=== PATIENT | male | born 1985 | race Caucasian/White ===

== ENCOUNTER 2016-07-13 09:44 | Emergency (ER) | payer MEDICAID ==
[2016-07-13] MEDS ORDERED: DEXAMETHASONE 10 MG/ML VIAL PO STA (10:11)
[2016-07-13] MEDS ORDERED: ALBUTEROL NEB 2.5 MG/3 ML INH STA (10:11)
[2016-07-13] MEDS ORDERED: CHERRY SYRUP 10 ML UDC PO ONE (10:13)
[2016-07-13] MEDS ORDERED: DEXAMETHASONE 10 MG/ML VIAL ONE (10:13)
[2016-07-13] MEDS ORDERED: ALBUTEROL NEB 2.5 MG/3 ML INH ONE (10:19)
== END 2016-07-13 11:33 | disposition home or self-care (01) ==
DX: J45.901 Unspecified asthma with (acute) exacerbation (principal)
CPT/HCPCS: 71020; 94640; 94664; 99283; A9270; J7613

== ENCOUNTER 2016-07-19 21:06 | Emergency (ER) | payer MEDICAID ==
[2016-07-19] MEDS ORDERED: AZITHROMYCIN 250 MG TABLET PO STA (21:14)
[2016-07-19] MEDS ORDERED: BENZONATATE 100 MG CAPSULE PO STA (21:14)
[2016-07-19] MEDS ORDERED: AZITHROMYCIN 250 MG TABLET PO ONE (21:47)
[2016-07-19] MEDS ORDERED: BENZONATATE 100 MG CAPSULE PO ONE (21:47)
== END 2016-07-19 21:54 | disposition home or self-care (01) ==
DX: J45.21 Mild intermittent asthma with (acute) exacerbation (principal)
CPT/HCPCS: 99282; 99283; A9270

== ENCOUNTER 2016-08-02 16:17 | Emergency (ER) | payer MEDICAID ==
[2016-08-02] MEDS ORDERED: DEXAMETHASONE 10 MG/ML VIAL PO STA (17:01)
[2016-08-02] MEDS ORDERED: CHERRY SYRUP 10 ML UDC PO ONE (17:10)
[2016-08-02] MEDS ORDERED: DEXAMETHASONE 10 MG/ML VIAL ONE (17:10)
== END 2016-08-02 17:56 | disposition home or self-care (01) ==
DX: J20.9 Acute bronchitis, unspecified (principal); J45.909 Unspecified asthma, uncomplicated; H66.001 Acute suppurative otitis media without spontaneous rupture of ear drum, right ear; H74.02 Tympanosclerosis, left ear; R03.0 Elevated blood-pressure reading, without diagnosis of hypertension
CPT/HCPCS: 71020; 99283; 99284; A9270

== ENCOUNTER 2017-05-14 09:45 | Emergency (ER) | payer MEDICAID ==
[2017-05-14 10:04] VITALS: BP 126/60
[2017-05-14] MEDS ORDERED: DEXAMETHASONE 10 MG/ML VIAL PO STA (10:39)
--- NOTE | 2017-05-14 10:42 | ED Physician Documentation ---
PD HPI HEENT - Stated complaint Stated Complaint: LEFT SIDE NECK SWOLLEN - Chief complaint Chief Complaint: Heent - History obtained from History obtained from: Patient - History of Present Illness Timing - onset: How many days ago (7) Timing - duration: Weeks (1) Timing - details: Gradual onset, Still present Location: Left ear, Throat Improves: Medication Worsens: Swalllowing Associated symptoms: Fever, Congestion, Rhinorrhea, Swollen nodes, Cough Similar symptoms before: Diagnosis (bronchitis) Recently seen: Not recently seen - Additional information Additional information: 31-year-old male with a history of asthma has developed a cough and congestion for the past week. He has had a little bit of a low-grade fever muscle aches and nasal congestion. 3 days ago he began to have some swelling in the left side of his neck this is much larger today is a firm mass in the left submandibular area that is mildly tender. He is able to swallow and he is having some problem with his asthma but not significant. Review of Systems Constitutional: reports: Fever Eyes: denies: Decreased vision Ears: reports: Ear pain Nose: reports: Rhinorrhea / runny nose, Congestion Throat: denies: Dental pain / toothache, Oral lesions / sores, Sore throat Cardiac: denies: Chest pain / pressure, Palpitations Respiratory: reports: Dyspnea, Cough, Wheezing GI: denies: Abdominal Pain, Nausea, Vomiting : denies: Dysuria, Frequency Musculoskeletal: reports: Neck pain. denies: Back pain, Extremity pain Neurologic: denies: Generalized weakness, Focal weakness PD PAST MEDICAL HISTORY - Past Medical History Respiratory: Asthma Psych: Depression - Past Surgical History Past Surgical History: No - Present Medications Home Medications: Ambulatory Orders Medication Instructions Recorded Confirmed Albuterol Sulfate [Proair Hfa 2 puffs INH Q4H PRN #1 inhaler 07/13/16 07/19/16 Inhaler] Albuterol Sulf [Ventolin Hfa 1 - 2 puffs INH Q4HR PRN #1 inhaler 08/02/16 Inhaler] Amox/Clav 875/125 [Augmentin] 1 each PO Q12H #20 tablet 08/02/16 Benzonatate [Tessalon] 100 - 200 mg PO TID PRN #20 capsule 08/02/16 predniSONE [Deltasone] 10 mg PO DAILY #26 tablet 08/02/16 Albuterol Sulf [Ventolin Hfa 1 - 2 puffs INH Q4HR PRN #1 inhaler 05/14/17 Inhaler] Amox/Clav 875/125 [Augmentin] 1 each PO Q12H #20 tablet 05/14/17 - Allergies Allergies/Adverse Reactions: Allergies Allergy/AdvReac Type Severity Reaction Status Date / Time No Known Drug Allergies Allergy Verified 07/13/16 09:55 - Social History Does the pt smoke?: No Smoking Status: Never smoker Does the pt drink ETOH?: Yes Does the pt have substance abuse?: No - Immunizations Immunizations are current?: Yes - POLST Patient has POLST: No PD ED PE NORMAL - Vitals Vital signs reviewed: Yes - General General: Alert and oriented X 3, No acute distress, Well developed/nourished - HEENT HEENT: Atraumatic, PERRL, EOMI (Normal), Other (Left TM is with minimal erythema in the attic the right is Dull and with distorted landmarks. The pharynx is with 1+ tonsils without exudate.) - Neck Neck: Supple, no meningeal sign, No bony TTP, Other (There is a tender submandibular lymph node enlarged on the left side that is approximately 3 cm in size. The area is tender there is no fluctuance.) - Cardiac Cardiac: RRR - Respiratory Respiratory: No respiratory distress, Clear bilaterally - Abdomen Abdomen: Soft, Non tender - Derm Derm: Normal color, Warm and dry, No rash - Extremities Extremities: No deformity, No edema - Neuro Neuro: No motor deficit, No sensory deficit Eye Opening: Spontaneous Motor: Obeys Commands Verbal: Oriented GCS Score: 15 - Psych Psych: Normal mood, Normal affect Results - Vitals Vitals: Vital Signs - 24 hr 05/14/17 10:01 Temperature 37.1 C Heart Rate 96 Respiratory 17 Rate Blood Pressure 126/60 O2 Saturation 99 Oxygen O2 Source Room air PD MEDICAL DECISION MAKING - ED course Complexity details: considered differential, d/w patient ED course: 31-year-old maleHistory of asthma has a enlarged lymph node in the left submandibular area is given 10 mg of dexamethasone orally we will put him on some Augmentin. Departure - Departure Disposition: 01 Home, Self Care Clinical Impression: Lymphadenitis, acute Condition: Stable Instructions: ED Cervical Adenitis Abx Tx Follow-Up: Leslye Chisholm ARNP [Primary Care Provider] - Prescriptions: Albuterol Sulf [Ventolin Hfa Inhaler] 1 - 2 puffs INH Q4HR PRN #1 inhaler PRN Reason: Shortness Of Air/Wheezing Amox/Clav 875/125 [Augmentin] 1 each PO Q12H #20 tablet
== END 2017-05-14 11:05 | disposition home or self-care (01) ==
LOC: ED 09:45
DX: I88.9 Nonspecific lymphadenitis, unspecified (principal); J45.909 Unspecified asthma, uncomplicated
CPT/HCPCS: 99283

== ENCOUNTER 2019-02-01 02:43 | Day surgery (SDC) | payer SELFPAY ==
--- NOTE | 2019-02-01 02:56 | ED Physician Documentation ---
PD HPI ABD PAIN - Stated complaint Stated Complaint: ABD PX - History obtained from History obtained from: Patient - History of Present Illness Timing - onset: Yesterday Timing - duration: Days (2) Timing - details: Gradual onset Quality: Sharp Location: Epigastric, Periumbilical, RLQ Associated symptoms: Nausea, Constipation. No: Fever, Vomiting, Diarrhea, Dysuria, Hematuria, Dizzy, Near syncope / syncope, Testicular pain Similar symptoms before: Has not had sx before Recently seen: Not recently seen - Additional information Additional information: This is a 33-year-old man who presents with complaints that yesterday morning he woke up and was coughing and had some nausea and some epigastric abdominal pain just did not feel that well. Throughout the day yesterday the pain kind of migrated down to his bellybutton and he thought it was related to the fact that he had eaten some nachos. Pain today, waxed and waned through the day and tonight after 2 drinks it was gone. It started to come back again but he was able to get to sleep but he woke up at 2 AM with extreme nausea thought he was going to vomit but by the time he got into the bathroom he never actually vomited. Says he feels the urge to defecate and pass gas but nothing really comes out. He has not had any diarrhea. He did admit admit to eating a lot of jerking last through the day yesterday. He is rating the pain now to 5 out of 10 and he noted before coming in that if he pushed in his right lower abdomen he had a lot of sharp pain there and became concerned that this could be his appendix. Denies any fever and he has not taken any medications for the pain. No abdominal surgeries. Yesterday he experienced some discomfort in his testicles while he was at work but that is now resolved. Denies any dysuria or dizziness. The patient admits to 2-3 alcoholic beverages 3-4 nights a week. He does vape. He works as an electrician constructor supervisor. Review of Systems Constitutional: denies: Fever Throat: denies: Sore throat Respiratory: reports: Cough GI: reports: Abdominal Pain, Nausea, Constipation. denies: Vomiting, Diarrhea : denies: Dysuria Skin: denies: Rash Musculoskeletal: denies: Back pain Neurologic: denies: Near syncope PD PAST MEDICAL HISTORY - Past Medical History Respiratory: Asthma Psych: Depression - Past Surgical History Past Surgical History: No - Present Medications Home Medications: Ambulatory Orders Medication Instructions Recorded Confirmed Albuterol Sulfate [Proair Hfa 2 puffs INH Q4H PRN #1 inhaler 07/13/16 07/19/16 Inhaler] Albuterol Sulf [Ventolin Hfa 1 - 2 puffs INH Q4HR PRN #1 inhaler 08/02/16 Inhaler] Amox/Clav 875/125 [Augmentin] 1 each PO Q12H #20 tablet 08/02/16 Benzonatate [Tessalon] 100 - 200 mg PO TID PRN #20 capsule 08/02/16 predniSONE [Deltasone] 10 mg PO DAILY #26 tablet 08/02/16 Albuterol Sulf [Ventolin Hfa 1 - 2 puffs INH Q4HR PRN #1 inhaler 05/14/17 Inhaler] Amox/Clav 875/125 [Augmentin] 1 each PO Q12H #20 tablet 05/14/17 - Allergies Allergies/Adverse Reactions: Allergies Allergy/AdvReac Type Severity Reaction Status Date / Time No Known Drug Allergies Allergy Verified 07/13/16 09:55 - Social History Does the pt smoke?: No Smoking Status: Never smoker Does the pt drink ETOH?: Yes Does the pt have substance abuse?: No - Immunizations Immunizations are current?: Yes - POLST Patient has POLST: No PD ED PE NORMAL - Vitals Vital signs reviewed: Yes - General General: Alert and oriented X 3, No acute distress, Well developed/nourished - HEENT HEENT: Atraumatic, PERRL, EOMI, Other (Dry mucous membranes) - Neck Neck: Supple, no meningeal sign - Cardiac Cardiac: RRR, No murmur, Strong equal pulses - Respiratory Respiratory: No respiratory distress, Clear bilaterally - Abdomen Abdomen: Normal bowel sounds, Soft, Other (Tenderness in the right lower quadrant without guarding.) - Back Back: No CVA TTP - Derm Derm: Normal color, Warm and dry, No rash - Neuro Neuro: Alert and oriented X 3, 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, No motor deficit, No sensory deficit, Normal speech - Psych Psych: Normal mood, Normal affect Results - Vitals Vitals: Vital Signs - 24 hr 02/01/19 02/01/19 02:46 05:03 Temperature 37.1 C 37.2 C Heart Rate 104 H 110 H Respiratory 18 12 Rate Blood Pressure 123/77 128/63 O2 Saturation 99 100 Oxygen O2 Source Room air - Labs Labs: Laboratory Tests 02/01/19 02/01/19 02/01/19 03:20 03:20 03:20 WBC 10.5 RBC 4.75 Hgb 14.5 Hct 43.6 MCV 91.8 MCH 30.5 MCHC 33.3 RDW 12.8 Plt Count 175 MPV 10.2 Neut # (Auto) 7.8 H Lymph # (Auto) 1.6 [place] # (Auto) 0.9 Eos # (Auto) 0.1 Baso # (Auto) 0.1 Absolute Nucleated RBC 0.00 Nucleated RBC % 0.0 Sodium 139 Potassium 3.7 Chloride 105 Carbon Dioxide 27 Anion Gap 7.0 BUN 16 Creatinine 1.0 Estimated GFR (MDRD) 86 L Glucose 102 H Calcium 8.7 Total Bilirubin 1.1 H AST 20 ALT 18 Alkaline Phosphatase 88 Total Protein 7.8 Albumin 4.3 Globulin 3.5 Albumin/Globulin Ratio 1.2 Lipase 30 Urine Color YELLOW Urine Clarity CLEAR Urine pH 7.0 Ur Specific [place] 1.010 Urine Protein NEGATIVE Urine Glucose (UA) NEGATIVE Urine Ketones NEGATIVE Urine Occult Blood TRACE-INTA Urine Nitrite NEGATIVE Urine Bilirubin NEGATIVE Urine Urobilinogen 1 (NORMAL) Ur Leukocyte Esterase NEGATIVE Ur Microscopic Review NOT INDICATED Urine Culture Comments NOT INDICATED PD MEDICAL DECISION MAKING - ED course Complexity details: reviewed results, re-evaluated patient, considered diffe rential, d/w patient ED course: Patient's white blood cell count is normal. Bilirubin was 1.1 but otherwise chemistries are normal. Urinalysis was negative. CT scan of the abdomen and pelvis has been ordered. Patient was given Zofran 4 mg IV. He says his pain now is down to a 2 out of 10 and he declines any further pain medications at this time. 0445: CT showed acute appendicitis without perforation. I discussed case with Dr. Garcia who is on-call for surgery. He requested the patient be given Zosyn IV and he will be in to take the patient for an appendectomy. Plan was discussed with the patient. Departure - Departure Disposition: ED Transfer to [facility] Clinical Impression: Appendicitis Qualifiers: Appendicitis type: acute appendicitis Acute appendicitis type: with localized peritonitis Appendicitis gangrene presence: without gangrene Appendicitis perforation presence: without perforation Appendicitis abscess presence: without abscess Qualified Code(s): K35.30 - Acute appendicitis with localized peritonitis, without perforation or gangrene Condition: Good
[2019-02-01] MEDS ORDERED: ONDANSETRON 4 MG/2 ML VIAL IVP STA (03:08)
[2019-02-01] MEDS ORDERED: SODIUM CHLORIDE 0.9% 1,000 ML IV ONE (03:08)
[2019-02-01 03:36] LABS: BASOPHILS # (AUTO) 0.1 10^3/uL (0.0-0.1); BASOPHILS % (AUTO) 0.5 %; EOSINOPHILS # (AUTO) 0.1 10^3/uL (0.0-0.7); EOSINOPHILS % (AUTO) 0.9 %; HGB - HEMOGLOBIN 14.5 g/dL (14.0-18.0); LYMPHOCYTES # (AUTO) 1.6 10^3/uL (1.5-3.5); LYMPHOCYTES % (AUTO) 15.1 %; MEAN CORPUSCULAR HEMOGLOBIN 30.5 pg (27.0-31.0); MEAN CORPUSCULAR HGB CONC 33.3 g/dL (32.0-36.0); MEAN CORPUSCULAR VOLUME 91.8 fL (80.0-94.0); MEAN PLATELET VOLUME 10.2 fL (7.4-11.4); MONOCYTES # (AUTO) 0.9 10^3/uL (0.0-1.0); MONOCYTES % (AUTO) 8.1 %; NEUTROPHILS # (AUTO) 7.8 10^3/uL (1.5-6.6); NEUTROPHILS % (AUTO) 74.8 %; PLT - PLATELET COUNT 175 10^3/uL (130-450); RED BLOOD COUNT 4.75 10^6/uL (4.70-6.10); RED CELL DISTRIBUTION WIDTH 12.8 % (12.0-15.0); WHITE BLOOD COUNT 10.5 x10^3/uL (4.8-10.8)
[2019-02-01 03:40] LABS: BILIRUBIN,URINE NEGATIVE (NEGATIVE); GLUCOSE, URINE (UA) NEGATIVE (NEGATIVE); KETONES,URINE (UA) NEGATIVE (NEGATIVE); LEUKOCYTE ESTERASE, URINE NEGATIVE (NEGATIVE); NITRITE,URINE NEGATIVE (NEGATIVE); OCCULT BLOOD,URINE TRACE-INTA (NEGATIVE); PROTEIN,URINE NEGATIVE (NEGATIVE); UROBILINOGEN,URINE 1 (NORMAL) E.U./dL (NORMAL)
[2019-02-01 03:41] LABS: CLARITY,URINE CLEAR (CLEAR)
[2019-02-01 03:49] LABS: ALBUMIN 4.3 g/dL (3.2-5.5); ALBUMIN/GLOBULIN RATIO 1.2 (1.0-2.2); BILIRUBIN,TOTAL 1.1 mg/dL (0.2-1.0); CALCIUM 8.7 mg/dL (8.5-10.3); TOTAL PROTEIN 7.8 g/dL (6.7-8.2)
[2019-02-01] MEDS ORDERED: IOVERSOL 320 100 ML VIAL IVP ONE ×2 (03:49→04:25)
--- NOTE | 2019-02-01 04:41 | CT Report ---
Reason: RLQ abd pain Procedure Date: 02/01/2019 Accession Number: [id number] / [id number] Procedure: CT - Abdomen/Pelvis W CPT Code: Final Report FULL RESULT: EXAM: CT ABDOMEN AND PELVIS EXAM DATE: 02/01/2019 04:24 AM. CLINICAL HISTORY: RLQ abd pain. COMPARISONS: None. TECHNIQUE: Routine helical CT imaging was performed through the abdomen and pelvis. IV contrast: OPTI 320 100ML. Enteric contrast: No. Reconstructions: Coronal and sagittal. In accordance with CT protocol optimization, one or more of the following dose reduction techniques were utilized for this exam: automated exposure control, adjustment of mA and/or KV based on patient size, or use of iterative reconstructive technique. FINDINGS: The retrocecal appendix is dilated and fluid-filled measuring up to 1.4 cm in diameter. There is associated wall thickening and mucosal enhancement as well as periappendiceal fat stranding. No loculated intra-abdominal fluid collection is seen to suggest abscess. The intestines are otherwise normal in caliber and position. There is no evidence of bowel obstruction, pneumatosis, or free intraperitoneal air. No lymphadenopathy is seen. The abdominal aorta is normal in course and caliber. The lung bases are clear. The liver, gallbladder, spleen, pancreas, and adrenal glands, and kidneys are normal. No biliary dilatation is seen. There is no hydronephrosis. The bladder is normal. The prostate gland is normal. Phleboliths are seen in the pelvis. There is no free pelvic fluid. The visible thoracolumbar spinal alignment is maintained. The bones of the pelvis are intact and well aligned. No acute fracture or dislocation is seen. IMPRESSION: Acute appendicitis without evidence of perforation. RADIA
[2019-02-01] MEDS ORDERED: LACTATED RINGERS 1,000 ML IV STA (04:52)
[2019-02-01] MEDS ORDERED: PIPERACILLIN/TAZOBACTAM 3.375 GM in SODIUM CHLORIDE 0.9% MINIBAG 100 ML IV STA (05:01)
[2019-02-01] MEDS ORDERED: KETOROLAC 30 MG/ML VIAL IVP ONE (07:02)
[2019-02-01] MEDS ORDERED: GLYCOPYRROLATE 1 MG/5 ML VIAL IVP ONE (07:02)
[2019-02-01] MEDS ORDERED: fentaNYL 100 MCG/2 ML VIAL IVP ONE (07:02)
[2019-02-01] MEDS ORDERED: ROCURONIUM 50 MG/5 ML VIAL IVP ONE (07:02)
[2019-02-01] MEDS ORDERED: MIDAZOLAM 2 MG/2 ML VIAL IVP ONE (07:02)
[2019-02-01] MEDS ORDERED: NEOSTIGMINE 1 MG/1 ML 10 ML MDV IVP ONE (07:02)
[2019-02-01] MEDS ORDERED: DEXAMETHASONE 4 MG/ML VIAL IVP ONE (07:02)
[2019-02-01] MEDS ORDERED: PROPOFOL 200 MG/20 ML VIAL IVP ONE (07:02)
[2019-02-01] MEDS ORDERED: BUPIVACAINE 0.5% PF 30 ML VIAL ONE (07:20)
--- NOTE | 2019-02-01 07:42 | HISTORY & PHYSICAL EXAMINATION ---
HPI - Admitted From Admitted from: ED - History Obtained From Records Reviewed: RN notes reviewed History obtained from: Patient Exam limitations: No limitations - History of Present Illness Severity at the worst: reports: Moderate Pain Quality: reports: Sharp Context-Pain started w/: reports: Movement Timing: reports: Gradual onset PMH/PSH - Past Medical History Cardiovascular: positive: None Respiratory: positive: Asthma Psych: positive: Depression MRSA Hx?: No Social & Family Hx - Social History Does the pt smoke?: No Smoking Status: Never smoker Does the pt drink ETOH?: Yes Does the pt have substance abuse?: No - POLST Patient has POLST: No Meds/Allgy - Home Medications Home Medications: Ambulatory Orders Medication Instructions Recorded Confirmed Albuterol Sulfate [Proair Hfa 2 puffs INH Q4H PRN #1 inhaler 07/13/16 07/19/16 Inhaler] Albuterol Sulf [Ventolin Hfa 1 - 2 puffs INH Q4HR PRN #1 inhaler 08/02/16 Inhaler] Amox/Clav 875/125 [Augmentin] 1 each PO Q12H #20 tablet 08/02/16 Benzonatate [Tessalon] 100 - 200 mg PO TID PRN #20 capsule 08/02/16 predniSONE [Deltasone] 10 mg PO DAILY #26 tablet 08/02/16 Albuterol Sulf [Ventolin Hfa 1 - 2 puffs INH Q4HR PRN #1 inhaler 05/14/17 Inhaler] Amox/Clav 875/125 [Augmentin] 1 each PO Q12H #20 tablet 05/14/17 - Allergies Allergies/Adverse Reactions: Allergies Allergy/AdvReac Type Severity Reaction Status Date / Time No Known Drug Allergies Allergy Verified 07/13/16 09:55 Review of Systems - Gastrointestinal Gastrointestinal: reports: Abdominal pain Exam - Vital Signs Reviewed Vital Signs: Yes Vital Signs: Vital Signs x48h Temp Pulse Resp BP Pulse Ox 02/01/19 05:03 37.2 C 110 H 12 128/63 100 02/01/19 02:46 37.1 C 104 H 18 123/77 99 - Physical Exam General Appearance: positive: Alert, Mild distress Eyes Bilateral: positive: Normal inspection Neck: positive: Nml inspection Respiratory: positive: Chest non-tender, No respiratory distress, Breath sounds nml Cardiovascular: positive: Regular rate & rhythm Abdomen: positive: Tenderness, Guarding (RUQ) Results - Lab Results Fish Bones: 02/01/19 03:20 02/01/19 03:20 Other Lab Results: Lab Results x24hrs 02/01/19 02/01/19 02/01/19 Range/Units 03:20 03:20 03:20 WBC 10.5 (4.8-10.8) x10^3/uL RBC 4.75 (4.70-6.10) 10^6/uL Hgb 14.5 (14.0-18.0) g/dL Hct 43.6 (42.0-52.0) % MCV 91.8 (80.0-94.0) fL MCH 30.5 (27.0-31.0) pg MCHC 33.3 (32.0-36.0) g/dL RDW 12.8 (12.0-15.0) % Plt Count 175 (130-450) 10^3/uL MPV 10.2 (7.4-11.4) fL Neut # (Auto) 7.8 H (1.5-6.6) 10^3/uL Lymph # (Auto) 1.6 (1.5-3.5) 10^3/uL [place] # (Auto) 0.9 (0.0-1.0) 10^3/uL Eos # (Auto) 0.1 (0.0-0.7) 10^3/uL Baso # (Auto) 0.1 (0.0-0.1) 10^3/uL Absolute Nucleated RBC 0.00 x10^3/uL Nucleated RBC % 0.0 /100WBC Sodium 139 (135-145) mmol/L Potassium 3.7 (3.5-5.0) mmol/L Chloride 105 (101-111) mmol/L Carbon Dioxide 27 (21-32) mmol/L Anion Gap 7.0 (6-13) BUN 16 (6-20) mg/dL Creatinine 1.0 (0.6-1.2) mg/dL Estimated GFR (MDRD) 86 L (>89) Glucose 102 H (70-100) mg/dL Calcium 8.7 (8.5-10.3) mg/dL Total Bilirubin 1.1 H (0.2-1.0) mg/dL AST 20 (10-42) IU/L ALT 18 (10-60) IU/L Alkaline Phosphatase 88 (42-121) IU/L Total Protein 7.8 (6.7-8.2) g/dL Albumin 4.3 (3.2-5.5) g/dL Globulin 3.5 (2.1-4.2) g/dL Albumin/Globulin Ratio 1.2 (1.0-2.2) Lipase 30 (22-51) U/L Urine Color YELLOW Urine Clarity CLEAR (CLEAR) Urine pH 7.0 (5.0-7.5) PH Ur Specific [place] 1.010 (1.002-1.030) Urine Protein NEGATIVE (NEGATIVE) mg/dL Urine Glucose (UA) NEGATIVE (NEGATIVE) mg/dL Urine Ketones NEGATIVE (NEGATIVE) mg/dL Urine Occult Blood TRACE-INTA (NEGATIVE) Urine Nitrite NEGATIVE (NEGATIVE) Urine Bilirubin NEGATIVE (NEGATIVE) Urine Urobilinogen 1 (NORMAL) (NORMAL) E.U./dL Ur Leukocyte Esterase NEGATIVE (NEGATIVE) Ur Microscopic Review NOT INDICATED Urine Culture Comments NOT INDICATED - Diagnostic Imaging Results Diagnostic Imaging Results: positive: Final report reviewed Impression/Plan - Problem List Problem List: Acute appendicitis Appendectomy
--- NOTE | 2019-02-01 07:48 | ANESTHESIA ---
Pre-Anesthesia VS, & Labs - Diagnosis acute appendicitis - Procedure laparoscopic appendectomy Vital Signs: Temp Pulse Resp BP Pulse Ox 37.2 C 110 H 12 128/63 100 02/01/19 05:03 02/01/19 05:03 02/01/19 05:03 02/01/19 05:03 02/01/19 05:03 Height 6 ft Weight (kg) 72.575 kg Body Mass Index 21.7 - NPO >8 hours - Lab Results Current Lab Results: Laboratory Tests 02/01/19 03:20: Sodium 139, Potassium 3.7, Chloride 105, Carbon Dioxide 27, Anion Gap 7.0, BUN 16, Creatinine 1.0, Estimated GFR (MDRD) 86 L, Glucose 102 H, Calcium 8.7, Total Bilirubin 1.1 H, AST 20, ALT 18, Alkaline Phosphatase 88, Total Protein 7.8, Albumin 4.3, Globulin 3.5, Albumin/Globulin Ratio 1.2, Lipase 30 02/01/19 03:20: WBC 10.5, RBC 4.75, Hgb 14.5, Hct 43.6, MCV 91.8, MCH 30.5, MCHC 33.3, RDW 12.8, Plt Count 175, MPV 10.2, Neut # (Auto) 7.8 H, Lymph # (Auto) 1.6, [place] # (Auto) 0.9, Eos # (Auto) 0.1, Baso # (Auto) 0.1, Absolute Nucleated RBC 0.00, Nucleated RBC % 0.0 Lab results reviewed: Yes Fish Bones: 02/01/19 03:20 02/01/19 03:20 Home Medications and Allergies Active Medications Lactated Ringer's (Lr) 1,000 mls @ 150 mls/hr IV .[id number] STA Stop: 02/01/19 11:31 Last Admin: 02/01/19 06:33 Dose: 150 mls/hr Allergies/Adverse Reactions: Allergies Allergy/AdvReac Type Severity Reaction Status Date / Time No Known Drug Allergies Allergy Verified 07/13/16 09:55 Anes History & Medical History - Anesthetic History Anesthesia Complications: reports: No previous complications Family history of Anesthesia Complications: Denies Family history of Malignant Hyperthermia: Denies - Medical History Cardiovascular: reports: None Pulmonary: reports: Asthma Smoking Status: Current every day smoker (Vape) Exam General: Alert, Oriented x3, Cooperative Dental: WNL Mouth Openin Fingerbreadth Neck Mobility: Normal Mallampati classification: I Thyromental Distance: 4-6 cm Respiratory: Lungs clear, Normal breath sounds, No respiratory distress Cardiovascular: Regular rate Neurological: Normal speech Mental/Cognitive Status: Alert/Oriented X3, Normal for patient Cognitive Status: Within normal limits Plan Anesthesia Type: General Consent for Procedure(s) Verified and Reviewed: Yes Code Status: Attempt Resuscitation ASA classification: 2-Mild systemic disease Is this case an emergency?: Yes
[2019-02-01] MEDS ORDERED: ENOXAPARIN 30 MG/0.3 ML SYRINGE SUBQ ONE (08:20)
[2019-02-01] MEDS ORDERED: LACTATED RINGERS 1,000 ML IV ONE (08:24)
[2019-02-01] MEDS ORDERED: BUPIVACAINE 0.5% PF 30 ML VIAL SUBQ ONE ×2 (09:05)
--- NOTE | 2019-02-01 10:38 | IMMEDIATE POSTOPERATIVE NOTE ---
Immediate Postoperative Note - Procedure Note Procedure Date: 02/01/19 Pre-Op Diagnosis: Acute appendicitis Procedure: Lap appy Post-Op Diagnosis: Same Primary Surgeon: Radha Drencher: Brenda Anesthesia Type: General ET tube, Local Findings: Acute appy Complications: No complications Estimated Blood Loss (in cc): 5 Specimens and Cultures: Vermiform appendix Plan of Care: GS post op order set. Continue outpatient status
[2019-02-01] MEDS ORDERED: SODIUM CHLORIDE FLUSH 0.9% 10 ML SYRINGE IVP PRN (10:41)
--- NOTE | 2019-02-01 11:11 | Discharge Plan ---
Discharge Plan Problem Reviewed?: Yes Disposition: Home, Self Care Condition: Good Diet: Regular Activity Restrictions: No lifting more than 20# for 6 wks Shower Restrictions: No Driving Restrictions: No Weight Bearing: Full Weight No Smoking: If you smoke, Please STOP! Call for help. Follow-up with: Juan C Garcia DO [Provider Admit Priv/Credential] -
[2019-02-01] MEDS ORDERED: ONDANSETRON 4 MG/2 ML VIAL IVP PRN (11:18)
[2019-02-01] MEDS ORDERED: ACETAMINOPHEN 325 MG TABLET PO PRN (11:18)
[2019-02-01] MEDS ORDERED: IBUPROFEN 600 MG TABLET PO PRN (11:18)
[2019-02-01] MEDS ORDERED: oxyCODONE 5 MG TABLET PO PRN (11:18)
[2019-02-01] MEDS ORDERED: HYDROmorphone 1 MG/ML CARPUJECT ONE (11:20)
[2019-02-01 13:16] VITALS: BP 110/62
--- NOTE | 2019-02-01 16:16 | OPERATIVE REPORT ---
DATE OF SERVICE: 02/01/2019 Physician: Juan C Garcia DO PREOPERATIVE DIAGNOSIS/INDICATIONS: Acute retrocecal appendicitis. POSTOPERATIVE DIAGNOSIS/INDICATIONS: Acute retrocecal appendicitis. PROCEDURE PERFORMED: Laparoscopic appendectomy. SURGEON: Juan C Garcia DO COMPRESSOR MECHANIC: SHYLA Dunn. ANESTHETIC: General endotracheal tube with local assist. RESPITE PROVIDER: Brenda. FINDINGS: Acute bulbous retrocecal appendicitis. COMPLICATIONS: None. CONDITION: Improved upon transport to recovery. HISTORY: The patient is a 33-year-old white male with a 24-hour history of gradually increasing abdominal pain localizing to the right lower quadrant. He presented to the emergency department, where a CT scan revealed the above- mentioned findings of retrocecal bulbous appendicitis. DESCRIPTION OF PROCEDURE: The patient was taken to the operating room and under the above-mentioned anesthetic, prepped and draped in the usual sterile manner. A vertically oriented infraumbilical incision was made, and this was carried down through the anterior fascia where eventually the peritoneal cavity was entered with the Yane trocar. This was secured in the usual manner and two working ports 5 mm placed suprapubically and left anterolateral abdomen respectively. The appendix was quite difficult to locate, as it was extremely retrocecal and quite inferolaterally positioned. Eventually, however, it was identified and mobilized. I perceived a small serosal rent in the distal cecum, which did not become intraluminal, and this was repaired with a [id number] suture using the EndoStitch device. Subsequently, the appendix was further mobilized, the mesoappendix divided using the LigaSure device, and the appendix itself was amputated at its base with the cecum using 2 loads of the 45 vascular Endo-VARGHESE. The appendix was then placed in an EndoCatch bag and brought out through the umbilical port in the usual manner. Re-examination of the appendiceal stump and meso-appendiceal stump revealed no leak or bleeding respectively. After copious irrigation with sterile saline solution and evacuation of as much of the irrigant as possible, the patient was prepared for closure. Following a reported correct sponge and needle count, the working ports were withdrawn under direct vision, and there was no bleeding noted. The pneumoperitoneum was then released, and the umbilical fascia closed with two 0- Vicryl inverted interrupted sutures. Skin margins were all joined with undyed 4-0 subcuticular Monocryl with Dermabond over that. The patient transported to recovery in stable condition. TD: 02/01/2019 10:55 GALLO
[2019-02-01] MEDS ORDERED: SODIUM CHLORIDE FLUSH 0.9% 10 ML SYRINGE IVP SCH (17:00)
== END 2019-02-01 07:02 | disposition home or self-care (01) ==
LOC: ED 02:43 → SDS 07:01
PROVIDERS: ATTEND Surgery
PROC: 0DTJ4ZZ Resection of Appendix, Percutaneous Endoscopic Approach (ICD-10-PCS; principal; 2019-02-01 08:30)
DX: K35.80 Unspecified acute appendicitis (principal); J45.909 Unspecified asthma, uncomplicated
CPT/HCPCS: 36415; 44970; 74177; 80053; 81003; 83690; 85025; 96361; 96365; 96375; 99284; 99285; A9270; J1170; J1650; J7120; Q9967; 81001; 87086

== ENCOUNTER 2019-04-08 15:18 | Outpatient (CLI) | payer OTHER ==
[2019-04-08 17:45] LABS: BASOPHILS % (AUTO) 0.4 %; EOSINOPHILS # (AUTO) 0.1 10^3/uL (0.0-0.7); EOSINOPHILS % (AUTO) 1.3 %; LYMPHOCYTES # (AUTO) 2.5 10^3/uL (1.5-3.5); LYMPHOCYTES % (AUTO) 32.1 %; MEAN CORPUSCULAR HEMOGLOBIN 31.3 pg (27.0-31.0); MEAN CORPUSCULAR HGB CONC 33.4 g/dL (32.0-36.0); MEAN CORPUSCULAR VOLUME 93.7 fL (80.0-94.0); MEAN PLATELET VOLUME 10.9 fL (7.4-11.4); MONOCYTES # (AUTO) 0.5 10^3/uL (0.0-1.0); MONOCYTES % (AUTO) 6.6 %; NEUTROPHILS # (AUTO) 4.6 10^3/uL (1.5-6.6); PLT - PLATELET COUNT 220 10^3/uL (130-450); RED BLOOD COUNT 4.47 10^6/uL (4.70-6.10); WHITE BLOOD COUNT 7.8 x10^3/uL (4.8-10.8)
[2019-04-08 18:08] LABS: ALBUMIN 4.3 g/dL (3.2-5.5); ALBUMIN/GLOBULIN RATIO 1.3 (1.0-2.2); BILIRUBIN,TOTAL 0.9 mg/dL (0.2-1.0); CALCIUM 8.7 mg/dL (8.5-10.3); CREATININE 0.9 mg/dL (0.6-1.2); TOTAL PROTEIN 7.5 g/dL (6.7-8.2)
--- NOTE | 2019-04-09 14:40 | XRAY Report ---
Reason: PAIN IN LEFT TOE Procedure Date: 04/08/2019 Accession Number: [id number] / [id number] Procedure: XRS - Foot 2 View LT CPT Code: Final Report FULL RESULT: EXAM: LEFT FOOT RADIOGRAPHY EXAM DATE: 04/08/2019 03:28 PM. CLINICAL HISTORY: PAIN IN LEFT TOE. COMPARISON: None. TECHNIQUE: 2 views. FINDINGS: Bones: Normal. No fractures or bone lesions. Joints: No subluxation. Flexion is seen at the third PIP joint. Soft Tissues: Normal. No soft tissue swelling. IMPRESSION: 1. No evidence of acute fracture or dislocation of the left foot. 2. Flexion seen in the third PIP joint. RADIA
== END 2019-04-08 15:19 | disposition home or self-care (01) ==
LOC: DI.S 15:18
PROVIDERS: ATTEND Registered Nurse
DX: M79.675 Pain in left toe(s) (principal); L03.90 Cellulitis, unspecified
CPT/HCPCS: 36415; 80053; 85025

== ENCOUNTER 2021-04-13 17:44 | Outpatient (CLI) | payer OTHER ==
--- NOTE | 2021-04-14 08:53 | XRAY Report ---
PROCEDURE: Chest 2 View X-Ray INDICATIONS: COUGH TECHNIQUE: 2 view(s) of the chest. COMPARISON: 08/02/2016. FINDINGS: Surgical changes and devices: None. Lungs and pleura: No pleural effusions or pneumothorax. Scattered airspace opacities are noted in ri ght mid to lower lung field and left lower lung mares suggestive of bilateral pulmonary infiltrates. Mediastinum: Mediastinal contours are normal. Heart size is normal. Bones and chest wall: No suspicious bony abnormalities. Soft tissues appear unremarkable. IMPRESSION: Finding is suggestive of bilateral mid to lower lung field patchy infiltrates. No pleura l effusion or pneumothorax. Reviewed by: Josse Flores MD on 04/14/2021 8:51 AM PST Approved by: Josse Flores MD on 04/14/2021 8:51 AM PST Station ID: [id number]
== END 2021-04-13 17:45 | disposition home or self-care (01) ==
LOC: DI.S 17:44
PROVIDERS: ATTEND Physician Assistant
DX: R05.9 Cough, unspecified (principal); R91.8 Other nonspecific abnormal finding of lung field

== ENCOUNTER 2021-04-17 13:45 | Outpatient (CLI) | payer OTHER | END 2021-04-17 13:46 | disposition critical access hospital (66) | LOC: EMS 13:45 | DX: R07.9 Chest pain, unspecified (principal); R05.9 Cough, unspecified; R00.0 Tachycardia, unspecified | CPT/HCPCS: A0425; A0427 ==

== ENCOUNTER 2021-04-17 14:29 | Emergency (ER) | payer OTHER ==
[2021-04-17] MEDS ORDERED: MORPHINE 2 MG/ML CARPUJECT IVP STA (14:49)
--- NOTE | 2021-04-17 15:07 | ED Physician Documentation ---
History of Present Illness - Stated complaint Stated Complaint: CP - Chief complaint Chief Complaint: Resp - History obtained from History obtained from: Patient - History of Present Illness Timing: Today Pain level max: 9 Pain level now: 9 - Additonal information Additional information: Patient is a 35-year-old male, he states that he was diagnosed with Covid and began to have symptoms about 3 weeks ago. Has had continued coughing since that time. Had a chest x-ray 4 days ago which showed infiltrates bilaterally. Patient states he has developed left anterior chest wall pain, worse with movement and coughing. He states increased sharpness of the pain today, led him to seek care in the emergency department. The pain is nonradiating. Better with remaining still. Review of Systems Constitutional: denies: Fever, Chills Nose: denies: Rhinorrhea / runny nose, Congestion GI: denies: Vomiting, Diarrhea Skin: denies: Rash Musculoskeletal: denies: Neck pain, Back pain Neurologic: denies: Headache PD PAST MEDICAL HISTORY - Past Medical History Cardiovascular: None Respiratory: Asthma Psych: Depression - Past Surgical History Past Surgical History: No - Present Medications Home Medications: Ambulatory Orders Medication Instructions Recorded Confirmed Benzonatate [Tessalon] 100 - 200 mg PO TID PRN #20 capsule 08/02/16 04/17/21 predniSONE [Deltasone] 10 mg PO DAILY #26 tablet 08/02/16 04/17/21 Benzonatate [Tessalon] 200 mg PO TID PRN #30 cap 04/17/21 Oxycodone HCl/Acetaminophen 1 - 2 each PO Q6H PRN #14 tablet 04/17/21 [Percocet 5-325 mg Tablet] - Allergies Allergies/Adverse Reactions: Allergies Allergy/AdvReac Type Severity Reaction Status Date / Time No Known Drug Allergies Allergy Verified 07/13/16 09:55 - Social History Does the pt smoke?: No Smoking Status: Current every day smoker (Vape) Does the pt drink ETOH?: Yes Does the pt have substance abuse?: No - Immunizations Immunizations are current?: Yes - POLST Patient has POLST: No PD ED PE NORMAL - Vitals Vital signs reviewed: Yes - General General: Alert and oriented X 3, No acute distress - HEENT HEENT: Moist mucous membranes - Neck Neck: Supple, no meningeal sign - Cardiac Cardiac: RRR, Strong equal pulses, Other (TTP R anterior ribs about 9-10/ no crepitus, no ecchymosis. ) - Respiratory Respiratory: No respiratory distress, Clear bilaterally - Abdomen Abdomen: Soft, Non tender, Non distended - Derm Derm: Warm and dry - Neuro Neuro: Alert and oriented X 3 - Psych Psych: Normal mood, Normal affect Results - Vitals Vitals: Vital Signs - 24 hr 04/17/21 04/17/21 04/17/21 14:36 15:01 15:19 Temperature 98.4 C H Heart Rate 90 113 H 96 Respiratory 20 36 H 24 Rate Blood Pressure 96/86 H 115/92 H 115/67 O2 Saturation 96 100 95 04/17/21 16:16 Temperature Heart Rate 90 Respiratory 20 Rate Blood Pressure 115/70 O2 Saturation 97 Oxygen O2 Source Room air - Rads (name of study) Rib with chest x-ray Radiology: Final report received, EMP read contemporaneously, See rad report PD MEDICAL DECISION MAKING - ED course Complexity details: reviewed results, re-evaluated patient, considered differential (No ST elevation PR, no aortic dissection, no PE, no tension pneumothorax, no aortic aneurysm), d/w patient ED course: Patient with anterior chest wall pain. Worse with coughing and deep breathing. Tender palpation across the anterior chest wall as well. No acute findings of rib fracture. Pain well controlled here. No evidence of PE, ACS. EKG was normal with EMS. We will place on pain medication for likely a cracked rib versus cracked cartilage. We will have the patient follow-up with his doctor for further care. Patient counseled regarding signs and symptoms for which I believe and urgent re-evaluation would be necessary. Patient with good understanding of and agreement to plan and is comfortable going home at this time This document was made in part using voice recognition software. While efforts are made to proofread this document, sound alike and grammatical errors may occur. IMPRESSION: No displaced rib fracture or pneumothorax is seen. Bilateral pulmonary infiltrates are seen (right worse than left) which are similar to the prior plain film. I am prescribing a short course of short-acting opioid pain medication for this patient. I have reviewed the patients FIRE LOOKOUT and no concerning findings were noted. I have discussed that the opioids are for short term therapy only, and will not be refilled from the ED. Departure - Departure Disposition: 01 Home, Self Care Clinical Impression: COVID-19, Chest wall pain Condition: Good Instructions: ED Contusion Vs Minor Fx Rib Follow-Up: your,doctor in 1 week [Other] Prescriptions: Oxycodone HCl/Acetaminophen [Percocet 5-325 mg Tablet] 1 - 2 each PO Q6H PRN #14 tablet PRN Reason: pain Benzonatate [Tessalon] 200 mg PO TID PRN #30 cap PRN Reason: Cough Comments: Please follow-up with your doctor for repeat chest x-ray in 2 to 3 weeks to ensure that things are continuing to improve. Return if you worsen. Your prescriptions were sent to [facility] in [place]. I am prescribing a short course of narcotic pain medication for you. These are potentially dangerous and addictive medications that should be used carefully. These medications may constipate you. Take an [id number] stool softener (docusate) twice daily with plenty of water while taking these medications. If you go 24 hours without a bowel movement, take [id number] miralax, per package instructions. Do not drink or drive while taking these medications. If you received narcotic or sedating medications while in the emergency department, do not drive for 24 hours. Store this medication in a safe, secure place and out of reach of children. It is a violation of federal law to give or sell this medication to another person or to use in a manner other than prescribed. The ED will not refill narcotic prescriptions, including prescriptions lost or stolen. To dispose of unwanted medications: 1. [facility] [address] in [place] has a medication drop box. They accept prescription medications (in pill form) Monday through Monday 9:00 a.m. to 5:00 p.m. 2. The [facility] [place] [employer] accepts prescription medications (in pill form only) for disposal year round. Call for more information. 3. Contact the [facility] for the next [facility] sponsored prescription drug collection event. , [phone], or [phone];
--- NOTE | 2021-04-17 15:30 | XRAY Report ---
PROCEDURE: Ribs w/PA Chest LT INDICATIONS: L rib pain s/p cough TECHNIQUE: 2 views of the left ribs were acquired, along with a single view chest. COMPARISON: Chest radiograph, 04/13/2021 FINDINGS: Surgical changes and devices: None. Bones and chest wall: No fractures or dislocations. No suspicious bony lesions. Overlying soft tis sues appear unremarkable. Lungs and pleura: No pleural effusions or pneumothorax. Bilateral infiltrates are again seen, right worse than left. Mediastinum: Mediastinal contours appear normal. Heart size is normal. IMPRESSION: No displaced rib fracture or pneumothorax is seen. Bilateral pulmonary infiltrates are seen (right worse than left) which are similar to the prior plain film. Reviewed by: Amando Locke MD on 04/17/2021 2:29 PM [facility] Approved by: Amando Locke MD on 04/17/2021 2:29 PM [facility] Station ID: [id number]
[2021-04-17] MEDS ORDERED: oxyCODONE 5 MG TABLET PO STA (16:07)
[2021-04-17 16:18] VITALS: BP 115/70
== END 2021-04-17 16:24 | disposition home or self-care (01) ==
LOC: EDUNIT# → ED 14:29
DX: R07.89 Other chest pain (principal); U07.1 COVID-19; F17.200 Nicotine dependence, unspecified, uncomplicated
CPT/HCPCS: 71101; 96374; 99282; 99283; A9270; 80053; 83690; 84484; 85025

== ENCOUNTER 2021-05-27 13:30 | Outpatient (CLI) | payer OTHER ==
--- NOTE | 2021-05-27 14:02 | XRAY Report ---
PROCEDURE: Elbow 2 View RT INDICATIONS: CONTUSION OF RIGHT ELBOW TECHNIQUE: 2 views of the elbow were acquired. COMPARISON: None. FINDINGS: BONES/JOINT: No acute, displaced fracture or dislocation. No appreciable joint effusion. SOFT TISSUES: No focal abnormality. IMPRESSION: 1.No acute osseous abnormality of the elbow. Reviewed by: Alejandro Mallory MD on 05/27/2021 2:01 PM PDT Approved by: Alejandro Mallory MD on 05/27/2021 2:01 PM PDT Station ID: [id number]
== END 2021-05-27 23:59 ==
LOC: DI.S 13:30
PROVIDERS: ATTEND Emergency Medicine
DX: S50.01XA Contusion of right elbow, initial encounter (principal)

== ENCOUNTER 2023-04-06 07:00 | Outpatient (CLI) | payer OTHER ==
[2023-04-06 21:01] LABS: INFLUENZA A H1 2009- RESP PCR DETECTED; INFLUENZA A- RESP PCR PANEL NOT DETECTED; INFLUENZA B - RESP PCR PANEL NOT DETECTED; RSV- RESP PCR PANEL NOT DETECTED; SARS-CoV-2 -RESP PCR PANEL NOT DETECTED
== END 2023-04-06 23:59 | disposition home or self-care (01) ==
LOC: LAB.S 07:00
PROVIDERS: ATTEND Registered Nurse
DX: R50.9 Fever, unspecified (principal)
CPT/HCPCS: 87637